=== PATIENT | male | born 1990 | race Two or more races ===

== ENCOUNTER 2025-07-12 13:57 | Emergency (ER) | payer MEDICAID, OTHER ==
[~2025-07-12] VITALS: Ht 165.1 cm; Wt 69.6 kg
[2025-07-12 13:59] VITALS: BP 130/79; PULSE 76; RESP 20; TEMP 98.1; O2SAT 99
--- NOTE | 2025-07-12 14:34 | ED.PDOC ---
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 Patient reports that he was diagnosed with syphilis 4 months back in [place], never took treatment for it, the rash has resolved, patient denies any fever or chills or palpitations, or nausea/vomiting/diarrhea at this time. Patient was examined and has no rash no lymphadenopathy. Patient does not have a PCP and was given resources regarding community centers and health clinics. EKG was ordered and 1 shot of penicillin benzathine mg IM 2.4 million units was administered. penicillin not available, switch to doxycycline p.o., patient eloped. Patient was counseled to follow-up with community clinics and discharge Clinic. 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 Chief Complaint: Rash Time Seen by MD: 14:01 Allergies: Coded Allergies: NO KNOWN ALLERGIES (Unverified , 07/12/25) Home Meds Active Scripts Doxycycline Monohydrate (Doxycycline Monohydrate) 100 Mg Tab, 100 MG PO BID for 14 Days, #28 TAB 0 Refills Prov:NY MARQUEZ RESIDENT 07/12/25 Penicillin G Benzathine (Extencilline) 2,400,000 Unit Inj, [id number] UNIT IM ONCE for 1 Day, #1 INJ 0 Refills Prov:NY MARQUEZ RESIDENT 07/12/25 Mode of Arrival: Ambulatory Past Medical History PAST MEDICAL HISTORY: Denies Past Medical History (Other): Syphilis, drug use Social History Smoker: Non-Smoker Alcohol: Rarely Drugs: Methamphetamine Lives In: Other (Rehab) Constitutional: denies: chills, diaphoresis, fatigue, fever, malaise, sweats, weakness, others EENTM: denies: blurred vision, double vision, ear bleeding, ear discharge, ear drainage, ear pain, ear ringing, eye pain, eye redness, hearing loss, mouth pain, mouth swelling, nasal discharge, nose bleeding, nose congestion, nose pain, photophobia, tearing, throat pain, throat swelling, voice changes, others Respiratory: denies: cough, hemoptysis, orthopnea, SOB at rest, shortness of breath, SOB with excertion, stridor, wheezing, others Cardiovascular: denies: chest pain, dizzy spells, diaphoresis, Dyspnea on exertion, edema, irregular heart beat, left arm pain, lightheadedness, palpitations, PND, syncope, others Gastrointestinal: denies: abdomen distended, abdominal pain, blood streaked bowels, constipated, diarrhea, dysphagia, difficulty swallowing, hematemesis, melena, nausea, poor appetite, poor fluid intake, rectal bleeding, rectal pain, vomiting, others Genitourinary: denies: burning, dysuria, flank pain, frequency, hematuria, incontinence, penile discharge, penile sore, pain, testicle pain, testicle swelling, urgency, others Neurological: denies: dizziness, fainting, headache, left sided numbness, left sided weakness, numbness, paresthesia, pre-existing deficit, right sided numbness, right sided weakness, seizure, speech problems, tingling, tremors, weakness, others Integumetry: denies: bruises, change in color, change in hair/nails, dryness, laceration, lesions, lumps, rash, wounds, others Allergic/Immunocompromised: denies: Difficulty Healing, Frequent Infections, Hives, Itching, others Hematologic/Lymphatic: denies: anemia, blood clots, easy bleeding, easy bruising, swollen glands, others Endocrine: denies: excessive hunger, excessive sweating, excessive thirst, excessive urination, flushing, intolerance to cold, intolerance to heat, unexplained weight gain, unexplained weight loss, others Psychiatric: denies: anxiety, bipolar disorder, depression, hopeless, panic disorder, schizophrenia, sleepless, suicidal, others Physical Exam General Appearance: No Apparent Distress, Normal HEENT: Normal ENT Inspection, Pharynx Normal, TMs Normal Neck: Full Range of Motion, Non-Tender, Normal, Normal Inspection Respiratory: Chest Non-Tender, Lungs Clear, No Accessory Muscle Use, No Respiratory Distress, Normal Breath Sounds Cardiovascular: No Edema, No JVD, No Murmur, No Gallop, Normal Peripheral Pulses, Regular Rate/Rhythm Breast Exam: Deferred Gastrointestinal: No Organomegaly, Non Tender, No Pulsatile Mass, Normal Bowel Sounds, Soft Genitalia: Normal Pelvic: Deferred Rectal: Deferred Extremities: No calf tenderness, Normal capillary refill, Normal inspection, Normal range of motion, Non-tender, No pedal edema 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 Was a procedure done?: No Differential Dx Considerations may include: Syphilis/herpes/HPV/scabies X-Ray, Labs, Meds, VS Vital Signs Date Time Temp Pulse Resp B/P (MAP) Pulse Ox O2 Delivery O2 Flow Rate FiO2 07/12/25 13:59 98.1 76 20 130/79 99 98.1 Time of 1ST Reevaluation: 15:00 Reevaluation 1ST: Resolved Patient Education/Counseling: Diagnosis, Treatment, Need For Follow Up Family Education/Counseling: No Family Present SEPSIS Sepsis Screen Date sepsis recognized/suspect: Jul 12, 2025 Time Sepsis recognized/suspect: 1456 Recent Procedure: No On Antibiotic Therapy: No Respiratory Rate >20: No Heart Rate >90: No Temp<36 C (96.8 F) or >38.3 C: No SBP <90 or MAP <65 mmHG: No New Acute Mental Status Change: No Is the patient on CPAP, BIPAP,: No Physician Orders Electrocardigram (07/12/25 14:32) Vital Signs Date Time Temp Pulse Resp B/P (MAP) Pulse Ox O2 Delivery O2 Flow Rate FiO2 07/12/25 13:59 98.1 76 20 130/79 99 98.1 Departure 1 Departure Time of Disposition: 15:30 Impression: Primary Impression: Syphilis (acquired) Disposition: 07 LEFT AWOL/ELOPED Condition: Stable Referrals Discharge Clinic e-Prescriptions Doxycycline Monohydrate (Doxycycline Monohydrate) 100 Mg Tab 100 MG PO BID for 14 Days, #28 TAB 0 Refills Prov: NY MARQUEZ 07/12/25 Penicillin G Benzathine (Extencilline) 2,400,000 Unit Inj [id number] UNIT IM ONCE for 1 Day, #1 INJ 0 Refills Prov: NY MARQUEZ 07/12/25 Critical Care Note Critical Care Time?: No Stability Stability form required: NY Ibarra Jul 12, 2025 14:34
[2025-07-12] MEDS: PENICILLIN G BENZ 1,200,000 UNITS/2 ML SYRG IM ONE (14:45)
[2025-07-12] MEDS ORDERED: [UNRECOGNIZED DRUG - CODE] IM (14:54)
[2025-07-12] MEDS ORDERED: DOX100T PO (15:21)
[2025-07-12] MEDS ORDERED: DOXYCYCLINE 100 MG TAB/CAP PO ONE (15:30)
== END 2025-07-12 15:41 | disposition left against medical advice (07) ==
LOC: ER 13:57
DX: A53.9 Syphilis, unspecified (principal); Z86.19 Personal history of other infectious and parasitic diseases